=== PATIENT | male | born 2000 | race Caucasian/White ===

== ENCOUNTER 2018-01-06 01:29 | Emergency (ER) | payer OTHER ==
[~2018-01-06] VITALS: Ht 182.9 cm; Wt 87.4 kg
[2018-01-06 02:08] LABS: HEMATOCRIT 40.2 % (38.0-50.0); HEMOGLOBIN 13.4 G/DL (12.5-16.6); MCH 29.1 PG (29.0-34.0); MCHC 33.3 G/DL (30.0-36.0); MCV 87.2 FL (86-99); PLATELET COUNT 210 K/uL (156-360); RBC DIS.WIDTH-CV 13.2 % (11.8-14.6); RBC DIS.WIDTH-SD 42.2 % (39-53); RED BLOOD COUNT 4.61 M/uL (4.00-5.50); WHITE BLOOD COUNT 9.8 K/uL (4.1-10.2)
[2018-01-06 02:22] LABS: ALBUMIN 4.2 g/dL (3.2-4.8); CHLORIDE 105 mEq/L (99-109); POTASSIUM 4.1 mEq/L (3.7-5.4); SODIUM 140 mEq/L (136-147)
[2018-01-06 02:25] LABS: GLUCOSE 105 mg/dL (70-99)
[2018-01-06 02:27] LABS: TOTAL BILIRUBIN 0.7 mg/dL (0.0-1.0)
[2018-01-06 02:28] LABS: ALKALINE PHOSPHATASE 79 IU/L (3-129); CREATININE 0.9 mg/dL (0.6-1.3); GFR ESTIMATE (CALCULATED) > 59 mL/min/ (58.99-99999)
[2018-01-06 02:29] LABS: UREA NITROGEN (BUN) 16 mg/dL (9-23)
[2018-01-06 02:30] LABS: AST (GOT) 28 IU/L (2-34)
[2018-01-06 02:31] LABS: ALT (GPT) 17 IU/L (3-49)
[2018-01-06 02:32] LABS: LIPASE 33 U/L (1.0-51.0)
[2018-01-06 03:10] LABS: APPEARANCE SL.HAZY ((CLEAR)); BILIRUBIN NEGATIVE; BLOOD NEGATIVE; COLOR YELLOW ((YELLOW)); GLUCOSE (STRIP) NEGATIVE; KETONES NEGATIVE; LEUKOCYTES NEGATIVE; NITRITE NEGATIVE; PROTEIN (STRIP) NEGATIVE; SPECIFIC GRAVITY 1.028 (1.000-1.030); UROBILINOGEN 0.2 MG/DL (0.2-1.0)
[2018-01-06 03:12] LABS: BACTERIA NONE SEEN /HPF; EPITHELIAL CELLS NONE SEEN /HPF; MUCUS NONE SEEN /LPF; UCUL ADDED? NO; WHITE BLOOD CELLS 0-5 /HPF (0-5)
[2018-01-06 05:02] LABS: CREATINE KINASE 223 IU/L (1-294)
[2018-01-06 05:25] VITALS: BP 122/67
== END 2018-01-06 05:26 | disposition home or self-care (01) ==
LOC: EME 01:29
PROVIDERS: Emergency Medicine
DX: R10.9 Unspecified abdominal pain (principal); R14.0 Abdominal distension (gaseous); R11.0 Nausea
CPT/HCPCS: 80053; 81003; 82550; 83690; 85027; 99281; 99285; J2765; J7030